=== PATIENT | female | born 1970 | race Caucasian/White ===

== ENCOUNTER → 2017-01-04 | Day surgery (SDC) | payer OTHER ==
[~2017-01-04] MED LIST: AZITHROMYCIN250 M1 PO; CEFDINIR 300MG300 MG PO; CITALOPRAM10 MG PO; CITALOPRAM20 MG PO; ESTRACE 1MG TABL1 MG PO; PHENERGAN 25MG.25 M1 PO
--- NOTE | 2017-01-04 12:01 | Operative Note ---
Colonoscopy ([facility]) Procedure date: 01/04/17 Date of : 74 Procedure:Colonoscopy Colonoscopy Indications: Mrs. Wilson is a 46-year-old female who is here for screening colonoscopy. She has had prior colon polyps. She had a colonoscopy 13 years ago was down a single polyp was removed. Her last colonoscopy 8 years ago revealed polyps once again. The report and pathology are not available. She does have some intermittent problem with bowels with both constipation and soft stools. She does state that her mother has Crohn's disease. The patient reports no rectal bleeding, weight loss or family history of colon cancer. Performing Provider: Shyam Sullivan MD Referrring Provider: Alexei Soto M.D. Sedation: Fentanyl 200 mg IV/Versed 10 mg IV Procedure: Prior to the procedure, a history and physical exam was performed, and patient medications and allergies were reviewed. The risks and benefits of the procedure and the sedation options and risks were discussed with the patient. All questions were answered and informed consent was obtained. Patient identification and proposed procedure were verified by the physician and the nurse. The patient was placed in a left lateral decubitus position. Throughout the procedure, the patient's blood pressure, pulse, and oxygen saturations were monitored continuously. Findings: On digital rectal examination there was normal rectal tone. There were no external hemorrhoids. The colonoscope was introduced through the anal canal to the rectum and advanced to the cecum. The ileocecal valve and appendiceal orifice were identified. The scope was advanced a short distance into the ileum which appeared grossly normal. The scope was then withdrawn into the colon. The cecum, ascending, transverse, descending, sigmoid and rectum were grossly normal. There were no mucosal abnormalities identified. Upon retroflexion within the rectum there were grade 1 internal hemorrhoids. Impressions: 1. Normal colonoscopy with intubation of the terminal ileum 2. Grade 1 internal hemorrhoids Recommendations: The patient will not require screening/surveillance colonoscopy again for 10 years by ACS guidelines. I would encourage fiber supplementation on a long-term daily maintenance basis. Complications: None EBL (ml): 0 at 1200
[2017-01-04 13:23] VITALS: BP 121/73
== END ==
LOC: SDC 10:10
PROVIDERS: Internal Medicine Gastroenterology
PROC: 0DJD8ZZ Inspection of Lower Intestinal Tract, Via Natural or Artificial Opening Endoscopic (ICD-10-PCS; principal; 2017-01-04 11:30)
DX: Z12.11 Encounter for screening for malignant neoplasm of colon (principal); Z86.010 Personal history of colon polyps; K64.0 First degree hemorrhoids